=== PATIENT | male | born 1990 | race African-American/Black ===

== ENCOUNTER 2017-08-22 02:21 | Emergency (ER) | payer BC | END 2017-08-22 03:22 | disposition home or self-care (01) | LOC: ERS 02:21 | DX: S69.92XA Unspecified injury of left wrist, hand and finger(s), initial encounter (principal); G56.22 Lesion of ulnar nerve, left upper limb; F17.210 Nicotine dependence, cigarettes, uncomplicated; X50.3XXA Overexertion from repetitive movements, initial encounter | CPT/HCPCS: 99283 ==

== ENCOUNTER 2017-09-22 16:35 | Emergency (ER) | payer BC ==
[2017-09-22 17:30] LABS: #Basophils 0.1 thou/uL (0.0-0.2); #Eosinphils 0.1 thou/uL (0.0-0.7); #Lymphocytes 2.5 thou/uL (1.20-3.40); #Monocytes 0.6 thou/uL (0.11-0.59); #Neutrophils 4.7 thou/uL (1.40-6.50); %Basophils 0.9 % (0.0-1.0); %Eosinophils 1.3 % (0.0-10.0); %Lymphocytes 31.3 % (21.0-51.0); %Monocytes 7.2 % (0.0-10.0); Hematocrit 46.9 % (42.0-52.0); Mean Platelet Volume 6.5 fL (7.4-10.4); Red Blood Cell (RBC) Count 4.99 mill/uL (4.70-6.10)
[2017-09-22 17:48] LABS: ALT (SGPT) 69 U/L (8-55); AST (SGOT) 38 U/L (5-34); Alkaline Phosphatase 83 U/L (40-150); Anion Gap 16 mmol/L (10-20); BUN (Urea Nitrogen) 15 mg/dL (8.9-20.6); Bilirubin, Total 0.7 mg/dL (0.2-1.2); CK (CPK) 249 U/L (30-200); Calc. Creatinine Clearance 0 mL/min (70-130); Calcium 10.5 mg/dL (7.8-10.44); Carbon Dioxide 25 mmol/L (22-29); Chloride 104 mmol/L (98-107); Estimated GFR-MDRD 77; Globulin 4.5 g/dL (2.4-3.5)
[2017-09-22 17:53] LABS: Troponin I Less than 0.010 ng/mL (< 0.028)
--- NOTE | 2017-09-22 18:50 | RAD ---
AP CHEST: Indication: 26-year-old male with dizziness and generalized weakness one week ago at work. Patient is currently feeling dizzy today. Comparison: Acute abdominal series, 03-04-11. FINDINGS: The lungs are clear. Cardiomediastinal silhouette is normal. No pleural effusion or pneumothorax is evident. No acute osseous abnormality is evident. IMPRESSION: No acute cardiopulmonary abnormality. POS: [facility]
--- NOTE | 2017-09-27 18:25 | EKG ---
Test Reason : Blood Pressure : / mmHG Vent. Rate : 084 BPM Atrial Rate : 084 BPM P-R Int : 130 ms QRS Dur : 074 ms QT Int : 364 ms P-R-T Axes : 054 053 016 degrees QTc Int : 430 ms Normal sinus rhythm with sinus arrhythmia Normal ECG Confirmed by JIMMIE Mckeon, FRANCISCO Haque ([id number]), development editor ANDREA QUACH ([id number] on 09/27/2017 6:24:32 PM Referred By: Confirmed By:FRANCISCO SAMUEL M.D.
== END 2017-09-22 18:54 | disposition home or self-care (01) ==
LOC: ERS 16:35
DX: R53.1 Weakness (principal); F17.210 Nicotine dependence, cigarettes, uncomplicated
CPT/HCPCS: 36415; 71010; 80053; 82550; 82553; 84484; 85025; 93005; 94760; 96360; 99406

== ENCOUNTER 2017-12-23 17:14 | Emergency (ER) | payer BC, SELFPAY ==
[2017-12-23] MEDS ORDERED: Ketorolac Tromethamine 30 MG/ML VIAL ONE (18:28)
--- NOTE | 2017-12-23 19:32 | RAD ---
LUMBAR SPINE SERIES THREE VIEWS: 12/23/17 HISTORY: Back injury at work. Vertebral bodies are normal in height. Disc spaces are well preserved. Pedicles are intact. IMPRESSION: Unremarkable lumbar spine series. POS: [facility]
--- NOTE | 2017-12-23 19:56 | RAD ---
THORACIC SPINE THREE VIEWS 12/23/17 HISTORY: Back injury. Vertebral bodies are normal in height. Disc spaces are well preserved. Pedicles are intact. IMPRESSION: No evidence of acute injury. POS: [facility]
== END 2017-12-23 19:33 | disposition home or self-care (01) ==
LOC: ERS 17:14
DX: S33.5XXA Sprain of ligaments of lumbar spine, initial encounter (principal); F17.210 Nicotine dependence, cigarettes, uncomplicated; X50.1XXA Overexertion from prolonged static or awkward postures, initial encounter
CPT/HCPCS: 72072; 72100; 96372; 99406; J1885

== ENCOUNTER 2018-04-14 15:34 | Emergency (ER) | payer SELFPAY ==
[~2018-04-14 15:34] MED LIST: ISOVUE-370 76%-LOCM 1 ML ONE
[2018-04-14] MEDS ORDERED: Ondansetron ODT 4 MG TAB ONE ×2 (16:00→16:22)
[2018-04-14 16:14] LABS: #Lymphocytes 0.9 thou/uL (1.20-3.40); #Monocytes 0.5 thou/uL (0.11-0.59); #Neutrophils 10.4 thou/uL (1.40-6.50); %Basophils 0.1 % (0.0-1.0); %Eosinophils 0.1 % (0.0-10.0); %Lymphocytes 7.6 % (21.0-51.0); %Monocytes 4.5 % (0.0-10.0); %Neutrophils 87.7 % (42.0-75.0); Hemoglobin 16.9 g/dL (14.0-18.0); Mean Corpuscular HGB CONC 33.9 g/dL (32.0-36.0); Mean Corpuscular Hemoglobin 32.2 pg (27.0-31.0); Mean Platelet Volume 6.5 fL (7.4-10.4); Platelet Count 290 thou/uL (130-400); Red Blood Cell (RBC) Count 5.24 mill/uL (4.70-6.10); White Blood Cell (WBC) Count 11.9 thou/uL (4.8-10.8)
[2018-04-14] MEDS ORDERED: Ketorolac Tromethamine 30 MG/ML VIAL ONE (16:22)
[2018-04-14 16:32] LABS: ALT (SGPT) 58 U/L (8-55); AST (SGOT) 93 U/L (5-34); Albumin 4.4 g/dL (3.5-5.0); Alkaline Phosphatase 100 U/L (40-150); Anion Gap 10 mmol/L (10-20); BUN (Urea Nitrogen) 14 mg/dL (8.9-20.6); Bilirubin, Total 0.7 mg/dL (0.2-1.2); Calc. Creatinine Clearance 0 mL/min (70-130); Calcium 9.4 mg/dL (7.8-10.44); Carbon Dioxide 25 mmol/L (22-29); Chloride 107 mmol/L (98-107); Estimated GFR-MDRD Greater than 90; Globulin 4.2 g/dL (2.4-3.5); Glucose 99 mg/dL (70-105); Potassium 4.2 mmol/L (3.5-5.1); Protein, Total 8.6 g/dL (6.0-8.3); Sodium 138 mmol/L (136-145)
[2018-04-14 17:07] LABS: Bilirubin Small (Negative); Blood, Urine Negative (Negative); Clarity CLEAR (Clear); Glucose, Urine (Dipstick) Negative (Negative); Leukocyte Negative (Negative); Nitrite Negative (Negative); Protein, Urine (Dipstick) Trace mg/dL (Neg-Trace); Specific Gravity, Urine 1.031 (1.002-1.036); Urobilinogen 0.2 mg/dL (0.2-1.0)
[2018-04-14] MEDS ORDERED: Dicyclomine 20 MG TAB ONE (19:13)
--- NOTE | 2018-04-14 19:57 | CT ---
CT ABDOMEN AND PELVIS WITH IV CONTRAST: 04/14/2018 PROVIDED CLINICAL HISTORY: Right lower quadrant pain and fever. COMPARISON: 04/04/2013 FINDINGS: The visualized lung bases are free of significant opacity. The liver, spleen, pancreas, kidneys, and adrenal glands demonstrate an unremarkable CT appearance. There is no bowel dilatation, inflammatory fat stranding, free fluid, or free air apparent. There is fluid density within the colon, which can be seen in the setting of a diarrheal illness. The osseous structures demonstrate no concerning osteoblastic or osteolytic lesions. The appendix is not visualized, compatible with the provided clinical history of a prior appendectomy. IMPRESSION: Fluid density within the colon, which can be seen in the setting of a diarrheal illness. POS: [facility]
== END 2018-04-14 19:30 | disposition home or self-care (01) ==
LOC: ERS 15:34
DX: K52.9 Noninfective gastroenteritis and colitis, unspecified (principal); F17.210 Nicotine dependence, cigarettes, uncomplicated; R79.89 Other specified abnormal findings of blood chemistry
CPT/HCPCS: 74177; 80053; 81003; 83690; 85025; 96361; 96374; J1885; Q0162

== ENCOUNTER 2018-11-07 21:33 | Emergency (ER) | payer SELFPAY ==
[2018-11-07] MEDS ORDERED: Ketorolac Tromethamine 30 MG/ML VIAL ONE (22:36)
[2018-11-07] MEDS ORDERED: Metoclopramide HCl 10 MG/2 ML VIAL ONE (22:36)
[2018-11-07] MEDS ORDERED: diphenhydrAMINE 50 MG/ML VIAL ONE (22:37)
== END 2018-11-07 23:53 | disposition home or self-care (01) ==
LOC: ERS 21:33
DX: G43.909 Migraine, unspecified, not intractable, without status migrainosus (principal); F17.210 Nicotine dependence, cigarettes, uncomplicated
CPT/HCPCS: 96365; 96375; J1200; J1885; J2765

== ENCOUNTER 2019-08-13 19:51 | Emergency (ER) | payer SELFPAY | END 2019-08-13 21:38 | disposition home or self-care (01) | LOC: ERS 19:51 | DX: M54.5 Low back pain (principal); G43.909 Migraine, unspecified, not intractable, without status migrainosus; F17.210 Nicotine dependence, cigarettes, uncomplicated | CPT/HCPCS: 99281 ==

== ENCOUNTER 2020-03-03 00:32 | Emergency (ER) | payer SELFPAY | END 2020-03-03 01:17 | disposition home or self-care (01) | LOC: ERS 00:32 | DX: R51 Headache (principal); F17.210 Nicotine dependence, cigarettes, uncomplicated | CPT/HCPCS: 99281 ==

== ENCOUNTER 2020-03-07 17:23 | Emergency (ER) | payer SELFPAY ==
[2020-03-07 18:59] LABS: #Basophils 0.1 thou/uL (0.0-0.2); #Eosinphils 0.1 thou/uL (0.0-0.7); #Lymphocytes 2.8 thou/uL (1.20-3.40); #Monocytes 0.5 thou/uL (0.11-0.59); #Neutrophils 3.4 thou/uL (1.40-6.50); %Basophils 1.9 % (0.0-1.0); %Lymphocytes 40.7 % (21.0-51.0); %Monocytes 7.1 % (0.0-10.0); %Neutrophils 49.3 % (42.0-75.0); Hemoglobin 15.5 g/dL (14.0-18.0); Mean Corpuscular HGB CONC 33.8 g/dL (32.0-36.0); Mean Corpuscular Hemoglobin 31.8 pg (27.0-31.0); Mean Corpuscular Volume 94.1 fL (78.0-98.0); Mean Platelet Volume 6.8 fL (7.4-10.4); Platelet Count 261 thou/uL (130-400); RBC Distribution Width 11.8 % (11.5-14.5); Red Blood Cell (RBC) Count 4.86 mill/uL (4.70-6.10); White Blood Cell (WBC) Count 6.9 thou/uL (4.8-10.8)
[2020-03-07 19:19] LABS: ALT (SGPT) 45 U/L (8-55); AST (SGOT) 31 U/L (5-34); Albumin 4.5 g/dL (3.5-5.0); Alkaline Phosphatase 76 U/L (40-110); Anion Gap 15 mmol/L (10-20); BUN (Urea Nitrogen) 20 mg/dL (8.9-20.6); Bilirubin, Total 0.4 mg/dL (0.2-1.2); Calc. Creatinine Clearance 0 mL/min (70-130); Calcium 9.9 mg/dL (7.8-10.44); Carbon Dioxide 23 mmol/L (22-29); Chloride 105 mmol/L (98-107); Estimated GFR-MDRD 74; Glucose 88 mg/dL (70-105); Potassium 4.6 mmol/L (3.5-5.1); Protein, Total 8.5 g/dL (6.0-8.3); Sodium 138 mmol/L (136-145)
== END 2020-03-07 20:38 | disposition home or self-care (01) ==
LOC: ERS 17:23
DX: R55 Syncope and collapse (principal); F17.210 Nicotine dependence, cigarettes, uncomplicated
CPT/HCPCS: 36415; 80053; 84484; 85025; 93005; 96360

== ENCOUNTER 2020-03-16 00:05 | Emergency (ER) | payer BC, SELFPAY ==
[2020-03-16] MEDS ORDERED: Ibuprofen 800 MG TAB ONE (00:35)
== END 2020-03-16 00:39 | disposition home or self-care (01) ==
LOC: ERS 00:05
DX: R51 Headache (principal); F17.210 Nicotine dependence, cigarettes, uncomplicated
CPT/HCPCS: 99283

== ENCOUNTER 2020-03-27 23:56 | Emergency (ER) | payer BC, SELFPAY ==
[2020-03-28] MEDS ORDERED: Ondansetron ODT 8 MG TAB ONE (00:15)
== END 2020-03-28 01:25 | disposition home or self-care (01) ==
LOC: ERS 23:56
DX: R11.2 Nausea with vomiting, unspecified (principal); R19.7 Diarrhea, unspecified; F17.210 Nicotine dependence, cigarettes, uncomplicated
CPT/HCPCS: 99283; Q0162

== ENCOUNTER 2020-08-30 18:46 | Emergency (ER) | payer OTHER, SELFPAY ==
[2020-08-30 20:11] LABS: #Basophils 0.1 thou/uL (0.0-0.2); #Eosinphils 0.1 thou/uL (0.0-0.7); #Lymphocytes 2.3 thou/uL (1.20-3.40); #Monocytes 0.6 thou/uL (0.11-0.59); #Neutrophils 5.9 thou/uL (1.40-6.50); %Basophils 1.2 % (0.0-1.0); %Eosinophils 1.1 % (0.0-10.0); %Lymphocytes 25.7 % (21.0-51.0); %Monocytes 6.8 % (0.0-10.0); %Neutrophils 65.3 % (42.0-75.0); Hemoglobin 14.5 g/dL (14.0-18.0); Mean Corpuscular HGB CONC 34.2 g/dL (32.0-36.0); Mean Corpuscular Volume 93.7 fL (78.0-98.0); Platelet Count 248 thou/uL (130-400); RBC Distribution Width 11.9 % (11.5-14.5); Red Blood Cell (RBC) Count 4.53 mill/uL (4.70-6.10)
--- NOTE | 2020-08-30 20:11 | RAD ---
Exam: Chest one view HISTORY:Dyspnea Comparison: 09/22/2017 FINDINGS: Cardiac silhouette: Normal Aorta: Unremarkable Pulmonary vessels: Normal Costophrenic angles: Clear LUNGS: No masses or consolidation. Pneumothorax: None Osseous abnormalities: None IMPRESSION: No acute cardiopulmonary process.
[2020-08-30 20:31] LABS: ALT (SGPT) 74 U/L (8-55); AST (SGOT) 49 U/L (5-34); Albumin 4.2 g/dL (3.5-5.0); Alkaline Phosphatase 76 U/L (40-110); Anion Gap 16 mmol/L (10-20); BUN (Urea Nitrogen) 13 mg/dL (8.9-20.6); Bilirubin, Total 0.3 mg/dL (0.2-1.2); CK (CPK) 327 U/L (30-200); Calc. Creatinine Clearance 0 mL/min (70-130); Calcium 8.9 mg/dL (7.8-10.44); Carbon Dioxide 23 mmol/L (22-29); Chloride 105 mmol/L (98-107); Estimated GFR-MDRD Greater than 90; Globulin 3.3 g/dL (2.4-3.5); Glucose 84 mg/dL (70-105); Potassium 4.1 mmol/L (3.5-5.1); Protein, Total 7.5 g/dL (6.0-8.3); Sodium 140 mmol/L (136-145)
[2020-08-31 12:44] LABS: SARS-CoV-2 MS2 Positive; SARS-CoV-2 N Gene Negative; SARS-CoV-2 S Gene Negative; SARS-CoV-2 by NAA Not Detected (NotDetected); SARS-CoV-2 orf1ab Negative
--- NOTE | 2020-09-09 13:03 | EKG ---
Test Reason : NURJEP Blood Pressure : / mmHG Vent. Rate : 095 BPM Atrial Rate : 095 BPM P-R Int : 136 ms QRS Dur : 080 ms QT Int : 368 ms P-R-T Axes : 068 068 015 degrees QTc Int : 462 ms Normal sinus rhythm Normal ECG Confirmed by CELSO JOHNSTON, JORGE ([id number]), editorial assistant BLESSING LEWIS ([id number] on 09/09/2020 1:02:39 PM Referred By: Confirmed By:JORGE HOUSTON MD
== END 2020-08-30 21:07 | disposition home or self-care (01) ==
LOC: ERS 18:46
DX: R00.0 Tachycardia, unspecified (principal); Z20.828 Contact with and (suspected) exposure to other viral communicable diseases; G43.909 Migraine, unspecified, not intractable, without status migrainosus; F17.210 Nicotine dependence, cigarettes, uncomplicated
CPT/HCPCS: 36415; 71045; 80053; 82550; 84484; 85025; 85379; 87635; 93005; U0003

== ENCOUNTER 2020-11-01 15:54 | Emergency (ER) | payer SELFPAY ==
[2020-11-01 19:16] LABS: #Basophils 0.1 thou/uL (0.0-0.2); #Eosinphils 0.1 thou/uL (0.0-0.7); #Lymphocytes 3.4 thou/uL (1.20-3.40); #Monocytes 0.8 thou/uL (0.11-0.59); #Neutrophils 3.3 thou/uL (1.40-6.50); %Basophils 1.5 % (0.0-1.0); %Eosinophils 1.5 % (0.0-10.0); %Lymphocytes 43.9 % (21.0-51.0); %Monocytes 10.8 % (0.0-10.0); %Neutrophils 42.3 % (42.0-75.0); Mean Corpuscular HGB CONC 34.1 g/dL (32.0-36.0); Mean Corpuscular Hemoglobin 31.9 pg (27.0-31.0); Mean Corpuscular Volume 93.6 fL (78.0-98.0); Platelet Count 256 thou/uL (130-400); RBC Distribution Width 11.8 % (11.5-14.5); Red Blood Cell (RBC) Count 4.72 mill/uL (4.70-6.10); White Blood Cell (WBC) Count 7.8 thou/uL (4.8-10.8)
[2020-11-01 19:41] LABS: ALT (SGPT) 58 U/L (8-55); AST (SGOT) 42 U/L (5-34); Albumin 4.1 g/dL (3.5-5.0); Alkaline Phosphatase 102 U/L (40-110); Anion Gap 12 mmol/L (10-20); BUN (Urea Nitrogen) 15 mg/dL (8.9-20.6); Bilirubin, Total 0.3 mg/dL (0.2-1.2); Calc. Creatinine Clearance 0 mL/min (70-130); Calcium 9.2 mg/dL (7.8-10.44); Carbon Dioxide 26 mmol/L (22-29); Chloride 105 mmol/L (98-107); Globulin 4.1 g/dL (2.4-3.5); Glucose 92 mg/dL (70-105); Lipase 16 U/L (8-78); Potassium 4.3 mmol/L (3.5-5.1); Protein, Total 8.2 g/dL (6.0-8.3); Sodium 139 mmol/L (136-145)
[2020-11-01 20:01] LABS: Bilirubin Negative (Negative); Blood, Urine Negative (Negative); Clarity Clear (Clear); Glucose, Urine (Dipstick) Normal (Negative); Ketone, Urine Negative (Negative); Leukocyte Negative Leu/uL (Negative); Nitrite Negative (Negative); Protein, Urine (Dipstick) Negative (Neg-Trace); Specific Gravity, Urine 1.028 (1.002-1.036); Urobilinogen Normal mg/dL (Less than 2)
== END 2020-11-01 19:55 | disposition left against medical advice (07) ==
LOC: ERS 15:54
DX: Z53.21 Procedure and treatment not carried out due to patient leaving prior to being seen by health care provider (principal)
CPT/HCPCS: 80053; 81003; 83690; 85025

== ENCOUNTER 2020-12-04 15:03 | Emergency (ER) | payer BC | END 2020-12-04 16:38 | disposition home or self-care (01) | LOC: ERS 15:03 | DX: H69.93 Unspecified Eustachian tube disorder, bilateral (principal); F17.210 Nicotine dependence, cigarettes, uncomplicated | CPT/HCPCS: 99281 ==